=== PATIENT | male | born 1935 | race Caucasian/White ===

== ENCOUNTER 2016-09-04 10:43 | Outpatient (RCR) | payer MEDICARE, OTHER ==
--- OUTSIDE RECORDS SUMMARY | 2016-06-09 10:28 | XMS REPORT | Continuity of Care Document ---
Author Author [facility] Organization [facility] Address Unknown Phone Unavailable Care Team Providers Care Rehabilitation Aide Name Role Phone Saqib Laura PCP [phone] Source Comments Some departments are not documenting in the electronic medical record. If you do not see the information that you expected, contact Release of Information in the Health Information Management department at [phone] for further assistance in locating additional records.[facility] Active Allergies and Adverse Reactions Not on File Current Medications Not on file Active Problems Not on file Social History Tobacco Use Types Packs/Day Years Used Date Never Assessed Plan of Care Health Maintenance Due Date Last Done Comments Physical (Comprehensive) 1940 Exam Pertussis Vaccine 1944 Tetanus Vaccine 1950 Shingles Vaccine 1993 Prevnar/Pneumovax (#1) 1998 Influenza Vaccine 05/08/2015 Results from Last 3 Months Not on file
[~2016-09-04 10:43] MED LIST: AMIO200T2 PO; ASCO-262 PO; ASCO10006 PO; ASP325T PO; ASPI-808 PO; ASPI-983 PO; ATOR40TA70 PO; BISA10SU6 RC; CA C1TAB26 PO; CALC-80 PO; CALC1TAB PO; CARV3.122 PO; CHOL10007 PO; CLOP75TA28 PO; CYCL10TA9 PO; DIPH25CA6 PO; ESCI10TA55 PO; FISH1CAP15 PO; FLUT16SP22 NS; FOLI0.8T PO; FOLI1TAB24 PO; FURO20TA4 PO; GABA600T2 PO; HYDR-753 PO; ISOS30TA3 PO; LISI-556 PO; LISI10TA PO; LORA10TA7 PO; LYSI500T13 PO; MAGN400O7 PO; MELO-195 PO; METO-333 PO; MMT17NA; MULT1CAP27 PO; NYST1000 PO; OMEG-160 PO; OMEP20CA12 PO; PANT40TA3 PO; POLY119P5 PO; POLY17PO6 PO; POTA99TA4 PO; PROM12.59 PO; RT-ALBUINH IH; SENN-1 PO; SOTA80TA PO; TAMS0.4C2 PO; TRAM50TA2 PO
== END 2016-09-07 | disposition home or self-care (01) ==
LOC: WOUNDCARE 10:43
PROVIDERS: ATTEND Surgery
DX: L89.610 Pressure ulcer of right heel, unstageable (principal); L89.620 Pressure ulcer of left heel, unstageable; L97.513 Non-pressure chronic ulcer of other part of right foot with necrosis of muscle; L97.212 Non-pressure chronic ulcer of right calf with fat layer exposed; L97.412 Non-pressure chronic ulcer of right heel and midfoot with fat layer exposed; I70.234 Atherosclerosis of native arteries of right leg with ulceration of heel and midfoot; M86.471 Chronic osteomyelitis with draining sinus, right ankle and foot
CPT/HCPCS: 11042; 11043; 87070; 87075; 87077; 87186; 87205; 99211; 99214

== ENCOUNTER 2016-12-08 09:02 | Outpatient (RCR) | payer MEDICARE, OTHER ==
--- OUTSIDE RECORDS SUMMARY | 2016-09-10 14:05 | XMS REPORT | Continuity of Care Document ---
Author Author [facility] Organization [facility] Address Unknown Phone Unavailable Care Team Providers Care Server Systems Administrator Name Role Phone Saqib Laura PCP [phone] Source Comments Some departments are not documenting in the electronic medical record. If you do not see the information that you expected, contact Release of Information in the Health Information Management department at [phone] for further assistance in locating additional records.[facility] Active Allergies and Adverse Reactions Not on [...]
== END 2016-12-09 | disposition home or self-care (01) ==
LOC: WOUNDCARE 09:02
PROVIDERS: ATTEND Surgery
DX: M86.471 Chronic osteomyelitis with draining sinus, right ankle and foot (principal); L89.610 Pressure ulcer of right heel, unstageable; L89.620 Pressure ulcer of left heel, unstageable; L97.513 Non-pressure chronic ulcer of other part of right foot with necrosis of muscle; L97.212 Non-pressure chronic ulcer of right calf with fat layer exposed; L97.514 Non-pressure chronic ulcer of other part of right foot with necrosis of bone; I70.235 Atherosclerosis of native arteries of right leg with ulceration of other part of foot
CPT/HCPCS: 11042; 11044; 87070; 87075; 87205; 97597; 99183

== ENCOUNTER 2017-01-14 08:47 | Outpatient (RCR) | payer MEDICARE, OTHER | END 2017-01-14 16:00 | disposition home or self-care (01) | LOC: WOUNDCARE 08:47 | PROVIDERS: ATTEND Surgery | DX: I70.234 Atherosclerosis of native arteries of right leg with ulceration of heel and midfoot (principal); M86.471 Chronic osteomyelitis with draining sinus, right ankle and foot; L89.610 Pressure ulcer of right heel, unstageable; L89.620 Pressure ulcer of left heel, unstageable; L97.513 Non-pressure chronic ulcer of other part of right foot with necrosis of muscle; L97.212 Non-pressure chronic ulcer of right calf with fat layer exposed | CPT/HCPCS: 11042; 97605; 99183; 99212 ==

== ENCOUNTER → 2017-04-16 | Outpatient (CLI) | payer MEDICARE, OTHER ==
[~2017-04-16] MED LIST changes: +ACET-2267 PO; +FLUT16SP22 NSEACH; +FOLI0.4T2 PO; +FURO40TA4 PO; +LYSI500T37 PO; +METO-387 PO
--- NOTE | 2017-04-16 19:14 | Diagnostic Imaging Report ---
INDICATION: Pain in right third toe. TECHNIQUE: AP, oblique, and lateral views of the right third toe are obtained. IMPRESSION: No fracture or acute bony abnormality is seen. 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 There is no acute fracture. Dictated by: Dictated on workstation # [id number]
== END ==
LOC: RAD 14:41
PROVIDERS: ATTEND Surgery
DX: M19.071 Primary osteoarthritis, right ankle and foot (principal); L03.115 Cellulitis of right lower limb; I70.235 Atherosclerosis of native arteries of right leg with ulceration of other part of foot; L97.514 Non-pressure chronic ulcer of other part of right foot with necrosis of bone; M86.471 Chronic osteomyelitis with draining sinus, right ankle and foot
CPT/HCPCS: 73630

== ENCOUNTER → 2017-04-16 | Outpatient (CLI) | payer MEDICARE, OTHER | LOC: WOUNDCARE 13:01 | PROVIDERS: ATTEND Surgery | DX: L97.514 Non-pressure chronic ulcer of other part of right foot with necrosis of bone (principal); I70.235 Atherosclerosis of native arteries of right leg with ulceration of other part of foot; M86.471 Chronic osteomyelitis with draining sinus, right ankle and foot; L03.115 Cellulitis of right lower limb | CPT/HCPCS: 11044; 87070; 87075; 87077; 87186; 87205 ==

== ENCOUNTER → 2017-04-23 | Outpatient (CLI) | payer MEDICARE, OTHER ==
[~2017-04-23] MED LIST changes: -ACET-2267 PO; -FLUT16SP22 NSEACH; -FOLI0.4T2 PO; -FURO40TA4 PO; -LYSI500T37 PO; -METO-387 PO
== END ==
LOC: WOUNDCARE 12:24
PROVIDERS: ATTEND Nurse Practitioner
DX: L97.514 Non-pressure chronic ulcer of other part of right foot with necrosis of bone (principal); I70.235 Atherosclerosis of native arteries of right leg with ulceration of other part of foot; M86.471 Chronic osteomyelitis with draining sinus, right ankle and foot; L03.115 Cellulitis of right lower limb
CPT/HCPCS: 11042

== ENCOUNTER 2017-04-28 12:47 | Outpatient (CLI) | payer MEDICARE, OTHER ==
[~2017-04-28] VITALS: Ht 175.3 cm; Wt 94.3 kg
[2017-04-28] MEDS ORDERED: VANCOMYCIN 1500 MG/NS 500 ML IVPB IV SCH ×2 (13:30)
[2017-04-28 14:10] VITALS: BP_SYST 154; BP_SYST 92; BP_DIAS 65; BP_DIAS 92
--- NOTE | 2017-04-28 14:22 | Diagnostic Imaging Report ---
EXAMINATION: Portable erect AP chest at 02:00 p.m. INDICATION: PICC line insertion. FINDINGS: The cardiomegaly and the left-sided defibrillator device noted on the prior exam of 02/28/2016 are again evident and no different. Also as on the prior study, there is elevation of the left hemidiaphragm with distention of the splenic flexure by gas. The lungs, where visualized, are generally clear. There is no sign of failure, pneumonia or pleural effusion. The mediastinum is not widened. The osseous structures are intact. 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 I would recommend that a three-view study of the right shoulder be performed for further evaluation. Also, in the interval since the prior exam a right-sided PICC line has been inserted. The tip of the line overlies the midportion of the superior vena cava and seems to be in good position. There is no pneumothorax on the right. IMPRESSION: 1. There is cardiomegaly, but there is no evidence for an acute cardiopulmonary abnormality. 2. There has been insertion of a right-sided PICC line without apparent complication. 3. The glenoid component of the total shoulder prosthesis may be malpositioned. A three-view right shoulder series would be recommended for further evaluation. Dictated by: Dictated on workstation # [id number]
== END 2017-04-28 16:15 | disposition home or self-care (01) ==
LOC: SDC 12:47
PROVIDERS: ATTEND Nurse Practitioner
DX: Z45.2 Encounter for adjustment and management of vascular access device (principal)
CPT/HCPCS: 36569; 71010; 76937; 96365; 96366

== ENCOUNTER → 2017-04-30 | Outpatient (CLI) | payer MEDICARE, OTHER | LOC: WOUNDCARE 12:25 | PROVIDERS: ATTEND Nurse Practitioner | DX: L97.514 Non-pressure chronic ulcer of other part of right foot with necrosis of bone (principal); I70.235 Atherosclerosis of native arteries of right leg with ulceration of other part of foot; M86.471 Chronic osteomyelitis with draining sinus, right ankle and foot; L03.115 Cellulitis of right lower limb | CPT/HCPCS: 11042 ==

== ENCOUNTER → 2017-05-07 | Outpatient (CLI) | payer MEDICARE, OTHER | LOC: WOUNDCARE 12:20 | PROVIDERS: ATTEND Internal Medicine | DX: L97.514 Non-pressure chronic ulcer of other part of right foot with necrosis of bone (principal); I70.235 Atherosclerosis of native arteries of right leg with ulceration of other part of foot; M86.471 Chronic osteomyelitis with draining sinus, right ankle and foot; L03.115 Cellulitis of right lower limb | CPT/HCPCS: 11042 ==

== ENCOUNTER → 2017-05-14 | Outpatient (CLI) | payer MEDICARE, OTHER | LOC: WOUNDCARE 12:23 | PROVIDERS: ATTEND Nurse Practitioner | DX: L97.514 Non-pressure chronic ulcer of other part of right foot with necrosis of bone (principal); I70.235 Atherosclerosis of native arteries of right leg with ulceration of other part of foot; M86.471 Chronic osteomyelitis with draining sinus, right ankle and foot; L03.115 Cellulitis of right lower limb | CPT/HCPCS: 11042 ==

== ENCOUNTER → 2017-05-21 | Outpatient (CLI) | payer MEDICARE, OTHER | LOC: WOUNDCARE 12:38 | PROVIDERS: ATTEND Nurse Practitioner | DX: L97.514 Non-pressure chronic ulcer of other part of right foot with necrosis of bone (principal); I70.235 Atherosclerosis of native arteries of right leg with ulceration of other part of foot; L03.115 Cellulitis of right lower limb; M86.471 Chronic osteomyelitis with draining sinus, right ankle and foot | CPT/HCPCS: 11042 ==

== ENCOUNTER → 2017-05-28 | Outpatient (CLI) | payer MEDICARE, OTHER ==
[~2017-05-28] MED LIST changes: +ACET-2267 PO; +FLUT16SP22 NSEACH; +FOLI0.4T2 PO; +FURO40TA4 PO; +LYSI500T37 PO; +METO-387 PO
== END ==
LOC: WOUNDCARE 12:32
PROVIDERS: ATTEND Nurse Practitioner
DX: L97.514 Non-pressure chronic ulcer of other part of right foot with necrosis of bone (principal); I70.235 Atherosclerosis of native arteries of right leg with ulceration of other part of foot; M86.471 Chronic osteomyelitis with draining sinus, right ankle and foot; L03.115 Cellulitis of right lower limb
CPT/HCPCS: 11042

== ENCOUNTER → 2017-06-04 | Outpatient (CLI) | payer MEDICARE, OTHER ==
[~2017-06-04] MED LIST changes: -ACET-2267 PO; -FLUT16SP22 NSEACH; -FOLI0.4T2 PO; -FURO40TA4 PO; -LYSI500T37 PO; -METO-387 PO
== END ==
LOC: WOUNDCARE 12:42
PROVIDERS: ATTEND Nurse Practitioner
DX: I70.235 Atherosclerosis of native arteries of right leg with ulceration of other part of foot (principal); L97.514 Non-pressure chronic ulcer of other part of right foot with necrosis of bone; M86.471 Chronic osteomyelitis with draining sinus, right ankle and foot; L03.115 Cellulitis of right lower limb
CPT/HCPCS: 11042

== ENCOUNTER 2017-06-11 12:12 | Outpatient (CLI) | payer MEDICARE, OTHER ==
[~2017-06-11] VITALS: Ht 175.3 cm; Wt 94.3 kg
[2017-06-11] MEDS ORDERED: LYSI500T37 PO (14:04)
[2017-06-11] MEDS ORDERED: FURO40TA4 PO (14:04)
[2017-06-11] MEDS ORDERED: ACET-2267 PO (14:04)
[2017-06-11] MEDS ORDERED: FOLI0.4T2 PO (14:04)
[2017-06-11] MEDS ORDERED: METO-270 PO (14:04)
[2017-06-11] MEDS ORDERED: AMIO200T2 PO (14:04)
[2017-06-11] MEDS ORDERED: LORA10TA7 PO (14:04)
[2017-06-11] MEDS ORDERED: MULT1CAP27 PO (14:04)
[2017-06-11] MEDS ORDERED: FLUT16SP22 NSEACH (14:04)
== END 2017-06-11 14:16 ==
LOC: PREOP 12:12
PROVIDERS: ATTEND Podiatrist Foot & Ankle Surgery
DX: Z01.818 Encounter for other preprocedural examination (principal); M86.171 Other acute osteomyelitis, right ankle and foot